=== PATIENT | male | born 1975 | race Caucasian/White ===

== ENCOUNTER 2020-06-23 16:51 | Emergency (ER) | payer OTHER ==
[~2020-06-23] VITALS: Ht 162.5 cm; Wt 73.5 kg
[2020-06-23] MEDS ORDERED: LORazepam INJ 2 MG/ML (ATIVAN) VIAL ONE (17:13)
[2020-06-23] MEDS ORDERED: ASPIRIN 81 MG CHEW (CHILDREN'S ASA) PO ONE (17:15)
[2020-06-23] MEDS ORDERED: NITROGLYCERIN 0.4 MG SL TABS BTL 25'S SL PRN (17:15)
[2020-06-23 17:17] LABS: HEMATOCRIT 47 % (40-54); HEMOGLOBIN 16.2 G/DL (13.3-17.7); LYMPHOCYTES % (AUTO) 21 % (12-44); MEAN CORPUSCULAR HEMOGLOBIN 31 PG (25-34); MEAN CORPUSCULAR HGB CONC 34 G/DL (32-36); MEAN CORPUSCULAR VOLUME 89 FL (80-99); MEAN PLATELET VOLUME 9.8 FL (7.4-10.4); MONOCYTES % (AUTO) 6 % (0-12); NEUTROPHILS % (AUTO) 69 % (42-75); PLATELET COUNT 322 10^3/uL (130-400); WHITE BLOOD COUNT 9.6 10^3/uL (4.3-11.0)
[2020-06-23 17:18] LABS: BASOPHILS # (AUTO) 0.1 10^3/uL (0.0-0.1); BASOPHILS % (AUTO) 1 % (0-10); EOSINOPHILS # (AUTO) 0.3 10^3/uL (0.0-0.3); EOSINOPHILS % (AUTO) 3 % (0-10); LYMPHOCYTES # (AUTO) 2.1 X 10^3 (1.0-4.0); MONOCYTES # (AUTO) 0.6 X 10^3 (0.0-1.0); NEUTROPHILS # (AUTO) 6.6 X 10^3 (1.8-7.8)
[2020-06-23] MEDS ORDERED: LORazepam INJ 2 MG/ML (ATIVAN) VIAL IVP ONE (17:30)
[2020-06-23 17:33] LABS: ALKALINE PHOSPHATASE 51 U/L (40-136); BILIRUBIN,TOTAL 0.3 MG/DL (0.1-1.0); BUN/CREATININE RATIO 19; CALCIUM 9.6 MG/DL (8.5-10.1); CARBON DIOXIDE 28 MMOL/L (21-32); CHLORIDE 102 MMOL/L (98-107); CREATININE SERUM 0.97 MG/DL (0.60-1.30); GFR ESTIMATED > 60; GLUCOSE 104 MG/DL (70-105); POTASSIUM 3.8 MMOL/L (3.6-5.0); SODIUM 139 MMOL/L (135-145)
[2020-06-23 17:34] LABS: ALANINE AMINOTRANSFERASE 18 U/L (0-55); ALBUMIN 4.7 GM/DL (3.2-4.5); LIPASE 31 U/L (8-78); TOTAL PROTEIN 7.2 GM/DL (6.4-8.2)
--- NOTE | 2020-06-23 17:36 | Diagnostic Imaging Report ---
EXAMINATION: Chest 1 view HISTORY: Chest pain and hypertension. COMPARISON: None available. FINDINGS: Heart size and pulmonary vasculature are normal. The lungs are clear without consolidation, pleural effusion, or pneumothorax. The osseous structures are intact. IMPRESSION: 1. No acute radiographic abnormality in the chest. Dictated by: Dictated on workstation # [id number]
[2020-06-23] MEDS ORDERED: ACETAMINOPHEN 500 MG TAB (TYLENOL) PO ONE (17:45)
--- NOTE | 2020-06-23 18:30 | ED Chest Pain ---
General Chief Complaint: Chest Pain Stated Complaint: CHEST PAINS Nursing Triage Note: Pt presents ambulatory to ED from [facility] Urgent Care referral for onset chest pain. Associated sx: HTN. Denies any medical health hx. Denies dyspnea, N/V, diaphoresis, or other sx. Reports elevated BP only at Dr visits. Pt has had L sided CP for several weeks off and on. Nursing Sepsis Screen: No Definite Risk Source: patient Exam Limitations: no limitations History of Present Illness Date Seen by Provider: June 23, 2020 Time Seen by Provider: 19:00 Initial Comments Patient is a 44-year-old male who presents with intermittent daily chest pressure for the past 2 weeks. Patient describes pain is dull nonradiating it is rated mild to moderate. Pain is not worse with palpation, movement, deep breathing or exertion. It is not relieved with rest. Patient states current episode started hours ago while at work. No medications or therapies taken prior to ED arrival. Patient states he has a history of whitecoat hypertension. He does not take medications at home. Denies abdominal pain, nausea vomiting, shortness of breath, leg pain or swelling. No back or flank pain. No other acute symptoms or complaints. Patient has not been evaluated for his symptoms prior to today's ED visit. Timing/Duration: other Severity/Quality: other Location: other Activities at Onset: other Prior CP/Workup: other Modifying Factors: improves with other Allergies and Home Medications Allergies Coded Allergies: Penicillins (Unverified Adverse Reaction, Mild, Hives, 06/23/20) Home Medications No Active Prescriptions or Reported Meds Patient Home Medication List Home Medication List Reviewed: Yes Review of Systems Review of Systems Constitutional: see HPI EENTM: See HPI Respiratory: See HPI Cardiovascular: See HPI Gastrointestinal: See HPI Genitourinary: See HPI Musculoskeletal: see HPI Skin: see HPI Psychiatric/Neurological: See HPI Endocrine: See HPI Hematologic/Lymphatic: See HPI All Other Systems Reviewed Negative Unless Noted: Yes Past Gubtfcl-Qfbfst-Jvwuak Hx Past Med/Social Hx: Reviewed Nursing Past Med/Soc Hx Patient Social History Alcohol Use: Rarely Uses Smoking Status: Former Smoker Former Smoker, Quit: Feb 14, 2005 Recent Infectious Disease Expo: No Recent Hopitalizations: No Immunizations Up To Date Tetanus Booster (TDap): Unknown Seasonal Allergies Seasonal Allergies: No Past Medical History Surgeries: Yes (Exp Laparotomy (stabbing), L knee meniscus) Adenoidectomy, Appendectomy, Orthopedic, Tonsillectomy Respiratory: No Cardiac: No Neurological: No Genitourinary: No Gastrointestinal: No Musculoskeletal: No Endocrine: No HEENT: No Cancer: No Psychosocial: No Integumentary: No Blood Disorders: No Physical Exam Vital Signs Vital Signs - First Documented Capillary Refill : Less Than 3 Seconds Height, Weight, BMI Height: '" Weight: lbs. oz. kg; 27.00 BMI Method: General Appearance: No Apparent Distress, Anxious HEENT: PERRL/EOMI, Pharynx Normal Neck: Full Range of Motion, Non Tender, Supple Respiratory: Lungs Clear Cardiovascular: Regular Rate, Rhythm Gastrointestinal: Non Tender, Soft Neurologic/Psychiatric: Alert, Oriented x3, No Motor/Sensory Deficits, Normal Mood/Affect Focused Exam Sepsis Stage: Ruled Out Progress/Results/Core Measures Results/Orders Lab Results Laboratory Tests Test 06/23/20 16:55 06/23/20 18:56 Range/Units White Blood Count 9.6 4.3-11.0 10^3/uL Red Blood Count 5.30 4.35-5.85 10^6/uL Hemoglobin 16.2 13.3-17.7 G/DL Hematocrit 47 40-54 % Mean Corpuscular Volume 89 80-99 FL Mean Corpuscular Hemoglobin 31 25-34 PG Mean Corpuscular Hemoglobin Concent 34 32-36 G/DL Red Cell Distribution Width 12.2 10.0-14.5 % Platelet Count 322 130-400 10^3/uL Mean Platelet Volume 9.8 7.4-10.4 FL Immature Granulocyte % (Auto) 0 % Neutrophils (%) (Auto) 69 42-75 % Lymphocytes (%) (Auto) 21 12-44 % Monocytes (%) (Auto) 6 0-12 % Eosinophils (%) (Auto) 3 0-10 % Basophils (%) (Auto) 1 0-10 % Neutrophils # (Auto) 6.6 1.8-7.8 X 10^3 Lymphocytes # (Auto) 2.1 1.0-4.0 X 10^3 Monocytes # (Auto) 0.6 0.0-1.0 X 10^3 Eosinophils # (Auto) 0.3 0.0-0.3 10^3/uL Basophils # (Auto) 0.1 0.0-0.1 10^3/uL Immature Granulocyte # (Auto) 0.0 0.0-0.1 10^3/uL D-Dimer 0.24 0.00-0.49 UG/ML Sodium Level 139 135-145 MMOL/L Potassium Level 3.8 3.6-5.0 MMOL/L Chloride Level 102 98-107 MMOL/L Carbon Dioxide Level 28 21-32 MMOL/L Anion Gap 9 5-14 MMOL/L Blood Urea Nitrogen 18 7-18 MG/DL Creatinine 0.97 0.60-1.30 MG/DL Estimat Glomerular Filtration Rate > 60 BUN/Creatinine Ratio 19 Glucose Level 104 70-105 MG/DL Calcium Level 9.6 8.5-10.1 MG/DL Corrected Calcium 8.5-10.1 MG/DL Total Bilirubin 0.3 0.1-1.0 MG/DL Aspartate Amino Transf (AST/SGOT) 20 5-34 U/L Alanine Aminotransferase (ALT/SGPT) 18 0-55 U/L Alkaline Phosphatase 51 40-136 U/L Troponin I < 0.30 <0.30 NG/ML Total Protein 7.2 6.4-8.2 GM/DL Albumin 4.7 H 3.2-4.5 GM/DL Lipase 31 8-78 U/L My Orders Orders - FARZAD HEATON DO Cbc With Automated Diff (06/23/20 17:00) Comprehensive Metabolic Panel (06/23/20 17:00) Troponin I Fs (06/23/20 17:00) Chest 1 View Ap/Pa Only (06/23/20 17:00) Fibrin Degradation Products (06/23/20 17:00) Lipase (06/23/20 17:00) Ekg-Prn For Chest Pain Or Rhyt (06/23/20 17:00) Aspirin Chewable Tablet (Baby Aspirin Ch (06/23/20 17:15) Nitroglycerin 0.4 Mg Btl 25's (Nitrostat (06/23/20 17:15) Lorazepam Injection (Ativan Injection) (06/23/20 17:30) Lorazepam Injection (Ativan Injection) (06/23/20 17:13) Acetaminophen Tablet (Tylenol Tablet) (06/23/20 17:45) Troponin I Fs (06/23/20 18:55) Troponin I Fs (06/23/20 18:39) Medications Given in ED Current Medications Medications Dose Ordered Sig/Rupa Route Start Time Stop Time Status Last Admin Dose Admin Acetaminophen 1,000 mg ONCE ONCE PO 06/23/20 17:45 06/23/20 17:46 DC 06/23/20 17:47 1,000 MG Aspirin 324 mg ONCE ONCE PO 06/23/20 17:15 06/23/20 17:16 DC 06/23/20 17:11 324 MG Nitroglycerin 1 TAB Q 5 MIN X 3 NEEDED PRN SL 06/23/20 17:15 06/23/20 17:11 0.4 MG Vital Signs/I&O 06/23/20 06/23/20 06/23/20 16:52 16:52 17:47 Temp 37.1 37.1 Pulse 82 Resp 20 B/P (MAP) 189/94 (125) O2 Delivery Room Air Room Air Blood Pressure Mean: 125 Departure Communication (Admissions) EKG 06/23/20 1651, normal sinus rhythm, rate 84, AL 137, QRS 92, QTc 447. No acute ST segment Twave changes. Patient with atypical chest pain partial relief with nitroglycerin. Patient resulted in headache Tylenol given for relief of headache. Further nitroglycerin declined. EKG and troponin are negative. Patient's chest pain improved with resolution of anxiety and normalization of blood pressure. Will update report. Recommendations are for hospital admission for further evaluation. Patient declines further evaluation and prefers to establish with a local primary care provider. I did explain to the patient that he is at risk of complications of undiagnosed CAD including injury and . Patient verbalizes understanding. He prefers to establish with a local primary care provider. Patient's heart score is 0-1. Feel this is reasonable and encouraged the patient to take daily aspirin and establish with a PCP tomorrow. Return precautions reviewed. Patient verbalizes understanding agreement discharge instructions prior to departure. Impression Primary Impression: Chest pain Disposition: 01 HOME, SELF-CARE Condition: Stable Departure-Patient Inst. Referrals: NO,LOCAL PHYSICIAN (PCP) Primary Care Physician Patient Instructions: Chest Pain, Adult ED Add. Discharge Instructions: You were evaluated in the ED for chest pain. An EKG, labs and imaging were performed and are a non-diagnostic. The exact cause of your symptoms has not been determined but may be heart related. Please take daily aspirin and establish with a local PC tomorrow. In the meantime, if you develop new or co ncerning symptoms return to the ED. All discharge instructions reviewed with patient and/or family. Voiced understanding. Scripts No Active Prescriptions or Reported Meds FARZAD HEATON DO June 23, 2020 18:30
[2020-06-23 19:25] VITALS: BP 164/95
== END 2020-06-23 19:25 | disposition home or self-care (01) ==
LOC: EDUNIT# 16:51 → ER FS 16:53
DX: R07.9 Chest pain, unspecified (principal); Z88.0 Allergy status to penicillin; Z87.891 Personal history of nicotine dependence
CPT/HCPCS: 36415; 71045; 80053; 83690; 84484; 85025; 85379; 93005

== ENCOUNTER → 2020-12-24 | Outpatient (CLI) | payer OTHER ==
--- NOTE | 2020-12-24 11:36 | Diagnostic Imaging Report ---
INDICATION: Neck pain. TIME OF EXAM: 11:05 AM AP, lateral and odontoid views of the cervical spine were obtained. FINDINGS: There is some straightening of normal cervical lordotic curvature. Vertebral body heights and disc spaces are well-maintained. No fracture or subluxation is identified. Prevertebral tissues are normal. Odontoid is intact. IMPRESSION: No acute abnormality is detected. Dictated by: Dictated on workstation # [id number]
== END ==
LOC: RAD FS 10:48
PROVIDERS: ATTEND Nurse Practitioner Family
DX: M50.122 Cervical disc disorder at C5-C6 level with radiculopathy (principal)
CPT/HCPCS: 72040

== ENCOUNTER → 2021-11-06 | Outpatient (CLI) | payer OTHER | LOC: CARD 14:30 | PROVIDERS: ATTEND Internal Medicine Cardiovascular Disease | DX: R06.09 Other forms of dyspnea (principal) | CPT/HCPCS: 93306 ==

== ENCOUNTER 2021-11-21 22:52 | Emergency (ER) | payer OTHER ==
[2021-11-21] MEDS ORDERED: NS IV 1000 ML 1,000 ML IV STA (23:07)
[2021-11-21] MEDS ORDERED: ONDANSETRON 4 MG/2 ML (SDV) Z0FRAN IVP STA (23:07)
[2021-11-21] MEDS ORDERED: KETOROLAC 30 MG/ML VIAL IVP STA (23:07)
[2021-11-21 23:12] LABS: BASOPHILS # (AUTO) 0.1 10^3/uL (0.0-0.1); BASOPHILS % (AUTO) 0 % (0-10); EOSINOPHILS # (AUTO) 0.1 10^3/uL (0.0-0.3); EOSINOPHILS % (AUTO) 1 % (0-10); HEMATOCRIT 48 % (40-54); HEMOGLOBIN 17.3 g/dL (13.3-17.7); LYMPHOCYTES % (AUTO) 7 % (12-44); MEAN CORPUSCULAR HEMOGLOBIN 32 pg (25-34); MEAN CORPUSCULAR HGB CONC 36 g/dL (32-36); MEAN CORPUSCULAR VOLUME 88 fL (80-99); MEAN PLATELET VOLUME 9.5 fL (9.0-12.2); MONOCYTES # (AUTO) 0.6 10^3/uL (0.0-1.0); MONOCYTES % (AUTO) 4 % (0-12); NEUTROPHILS # (AUTO) 12.3 10^3/uL (1.8-7.8); NEUTROPHILS % (AUTO) 87 % (42-75); PLATELET COUNT 344 10^3/uL (130-400); WHITE BLOOD COUNT 14.1 10^3/uL (4.3-11.0)
--- NOTE | 2021-11-21 23:14 | ED Back Pain ---
General Chief Complaint: Back Problems Stated Complaint: BACK PAIN, TROUBLE URINATING Nursing Triage Note: Pt complaining of right flank pain that started this morning as well as nausea/vomiting Source of Information: Patient History of Present Illness Date Seen by Provider: Nov 21, 2021 Time Seen by Provider: 23:00 Initial Comments 46-year-old male presenting with complaints of right flank pain that started in the morning and associated with nausea and vomiting coming in waves. He denies having pain or symptoms like this previously. He denies any acute injury or trauma. He was having difficulty trying to keep down even water at home this evening so he finally came to the emergency department. He denies any change in his bowels. He denies having any burning pain with urination and states that he has had decreased urination. He denies fever or chills. Timing/Duration: 12-24 Hours Severity: Severe Pain/Injury Location: Abdomen (Epigastric and right flank) Method of Injury: Unknown Modifying Factors: Worse With Movement, Worse With Other (Eating) Associated Symptoms: No muscle spasms, No fever, No weakness, No numbness in legs/feet, No tingling in legs/feet, No sensory/motor loss, No lower back pain, No loss of bladder control, No loss of bowel control Allergies and Home Medications Allergies Coded Allergies: Penicillins (Unverified Adverse Reaction, Mild, Hives, 06/23/20) Patient Home Medication List Home Medication List Reviewed: Yes No Active Prescriptions or Reported Meds Review of Systems Constitutional: No chills, No fever EENTM: no symptoms reported Respiratory: no symptoms reported Cardiovascular: no symptoms reported Gastrointestinal: see HPI Genitourinary: pain (Right flank pain) Musculoskeletal: no symptoms reported Skin: No rash Psychiatric/Neurological: No Symptoms Reported Past Odvhcib-Fsbwmu-Gabazt Hx Patient Social History Tobacco Use?: No Use of E-Cig and/or Vaping dev: No Substance use?: No Alcohol Use?: No Pt feels they are or have been: No Immunizations Up To Date Tetanus Booster (TDap): Unknown Seasonal Allergies Seasonal Allergies: No Past Medical History Surgery/Hospitalization HX: Hypertension, appendectomy, adenoidectomy, orthopedic surgery, tonsillectomy Surgeries: Yes (Exp Laparotomy (stabbing), L knee meniscus) Adenoidectomy, Appendectomy, Orthopedic, Tonsillectomy Respiratory: No Cardiac: No Neurological: No Genitourinary: No Gastrointestinal: No Musculoskeletal: No Endocrine: No HEENT: No Cancer: No Psychosocial: No Integumentary: No Blood Disorders: No Physical Exam Vital Signs Vital Signs - First Documented 11/21/21 22:57 Temp 36.7 Pulse 101 Resp 20 B/P (MAP) 171/107 (128) Pulse Ox 97 O2 Delivery Room Air Capillary Refill : Less Than 3 Seconds Height, Weight, BMI Height: '" Weight: lbs. oz. kg; 27.00 BMI Method: General Appearance: Mild Distress HEENT: PERRL/EOMI, Pharynx Normal Neck: Full Range of Motion, Normal Inspection, Non Tender, Supple Cardiovascular: Regular Rate, Rhythm, Normal Peripheral Pulses Respiratory: Chest Non Tender, Lungs Clear, Normal Breath Sounds, No Accessory Muscle Use, No Respiratory Distress Gastrointestinal: No Pulsatile Mass, Soft, Abnormal Bowel Sounds (Hypoactive bowel sounds); No Distended; Guarding; No Hepatomegaly, No Rebound; Tenderness (Epigastric and right flank) Back: No CVA Tenderness Extremity: Normal Capillary Refill, Normal Inspection, No Pedal Edema Neurologic/Psychiatric: Alert, Oriented x3, telephone service representative II-XII Norm as Tested Skin: Normal Color, Warm/Dry Progress/Results/Core Measures Results/Orders Lab Results Laboratory Tests Test 11/21/21 23:05 Range/Units White Blood Count 14.1 H 4.3-11.0 10^3/uL Red Blood Count 5.42 4.30-5.52 10^6/uL Hemoglobin 17.3 13.3-17.7 g/dL Hematocrit 48 40-54 % Mean Corpuscular Volume 88 80-99 fL Mean Corpuscular Hemoglobin 32 25-34 pg Mean Corpuscular Hemoglobin Concent 36 32-36 g/dL Red Cell Distribution Width 12.7 10.0-14.5 % Platelet Count 344 130-400 10^3/uL Mean Platelet Volume 9.5 9.0-12.2 fL Immature Granulocyte % (Auto) 0 % Neutrophils (%) (Auto) 87 H 42-75 % Lymphocytes (%) (Auto) 7 L 12-44 % Monocytes (%) (Auto) 4 0-12 % Eosinophils (%) (Auto) 1 0-10 % Basophils (%) (Auto) 0 0-10 % Neutrophils # (Auto) 12.3 H 1.8-7.8 10^3/uL Lymphocytes # (Auto) 1.0 1.0-4.0 10^3/uL Monocytes # (Auto) 0.6 0.0-1.0 10^3/uL Eosinophils # (Auto) 0.1 0.0-0.3 10^3/uL Basophils # (Auto) 0.1 0.0-0.1 10^3/uL Immature Granulocyte # (Auto) 0.1 0.0-0.1 10^3/uL Neutrophils % (Manual) 94 % Lymphocytes % (Manual) 4 % Monocytes % (Manual) 2 % Sodium Level 134 L 135-145 MMOL/L Potassium Level 4.5 3.6-5.0 MMOL/L Chloride Level 95 L 98-107 MMOL/L Carbon Dioxide Level 22 21-32 MMOL/L Anion Gap 17 H 5-14 MMOL/L Blood Urea Nitrogen 11 7-18 MG/DL Creatinine 1.08 0.60-1.30 MG/DL Estimat Glomerular Filtration Rate 86 BUN/Creatinine Ratio 10 Glucose Level 122 H 70-105 MG/DL Calcium Level 9.8 8.5-10.1 MG/DL Corrected Calcium 8.5-10.1 MG/DL Total Bilirubin 0.4 0.1-1.0 MG/DL Aspartate Amino Transf (AST/SGOT) 40 H 5-34 U/L Alanine Aminotransferase (ALT/SGPT) 29 0-55 U/L Alkaline Phosphatase 53 40-136 U/L Total Protein 7.9 6.4-8.2 GM/DL Albumin 4.6 H 3.2-4.5 GM/DL Lipase 22 8-78 U/L My Orders Orders - SÁNCHEZ URIBE MD Comprehensive Metabolic Panel (11/21/21 23:07) Lipase (11/21/21 23:07) Ua Culture If Indicated (11/21/21 23:07) Ed Iv/Invasive Line Start (11/21/21 23:) Cbc With Automated Diff (11/21/21 23:) Ct Abdomen/Pelvis Wo (11/21/21 23:07) Ns Iv 1000 Ml (Sodium Chloride 0.9%) (11/21/21 23:07) Ondansetron Injection (Zofran Injectio (11/21/21 23:07) Ketorolac Injection (Toradol Injection) (11/21/21 23:07) Manual Differential (11/21/21 23:05) Drug Screen Stat (Urine) (11/21/21 23:13) Pantoprazole Injection (Protonix Injecti (11/21/21 23:24) Fentanyl Inj (Sublimaze Injection) (11/21/21 23:24) Metronidazole 500mg/100ml Ivpb (Flagyl 5 (11/22/21 00:37) Ciprofloxacin Tablet (Cipro Tablet) (11/22/21 00:37) Ns Iv 1000 Ml (Sodium Chloride 0.9%) (11/22/21 00:37) Vital Signs/I&O 11/21/21 22:57 Temp 36.7 Pulse 101 Resp 20 B/P (MAP) 171/107 (128) Pulse Ox 97 O2 Delivery Room Air 11/22/21 00:00 Intake Total 1000 ml Balance 1000 ml Blood Pressure Mean: 128 Progress Progress Note #1: Progress Note Check basic labs and urine. Order CT scan of the abdomen and pelvis without contrast since he has sudden onset of pain and coming in waves will evaluate for possible kidney stone. Other diagnoses in his differential would be colitis, pancreatitis, cholecystitis, diverticulitis, gastritis. Administer 1 L normal saline IV fluid for hydration. Zofran 4 mg IV for nausea and vomiting, Toradol 30 mg IV for pain Progress Note #2: Progress Note When patient returned from CT he was still reporting a burning sensation in his epigastric area so Protonix was added and a dose of fentanyl. However when the nurse went to give the medicines he stated that he was feeling a little bit better so he only took the Protonix for now. Awaiting CT scan results but the labs showed a CBC and an elevated white blood cell count of 14.1 thousand with a left shift. He had no acute significant abnormality on his chemistry panel to account for his pain. He still has not provided a urine specimen. Progress Note #3: Time: 00:[address] scan shows 1 cm subpleural nodule in left lower lobe of lung and radiologist recommends follow up on that. Thickened proximal small bowel for infectious vs inflammatory enteritis. No appendicitis, cholecystitis. Will check with patient and see if he is able to tolerate po could do oral antibiotics at home with nausea medicine, pain medicine for bowels and clear liquid diet for 24 to 48 hours. If he can not tolerate po or pain is not controlled here in ED will check with decay control operator provider about admit for IVF, pain medicine and antibiotics. Progress Note #4: Time: 01:34 Progress Note Pain still tolerable and no more emesis while in ED. Tolerating po intake without aggravating his symptoms. Will discharge to home with oral antibiotics and nausea medicine as well as bentyl for pain. Clear liquid diet for 24 to 48 hours and then advance as tolerated. Return or seek medical care if not improving or having worsening symptoms Diagnostic Imaging Diagonstic Imaging: CT Plain Films/CT/US/NM/MRI: abdomen, pelvis Comments CT scan of the abdomen and pelvis without IV contrast shows a 1 cm subpleural nodule in the left lower lobe and radiology advises follow-up. Markedly thickened proximal small bowel probably infectious or inflammatory enteritis. CT was read by Dr. Brenda Glass MD with [facility] Reviewed: Reviewed by Me Departure Impression Primary Impression: Enteritis Additional Impressions: Epigastric abdominal pain Nausea and vomiting in adult Acute right flank pain Disposition: HOME, SELF-CARE Condition: Improved Departure-Patient Inst. Decision time for Depature: 01:40 Referrals: PONCHO ARANGO DO (PCP/Family) Primary Care Physician Patient Instructions: Abdominal Pain, Adult ED, Gastritis ED, Nausea and Vomiting, Adult ED Add. Discharge Instructions: Follow a liquid diet for next 24 to 48 hours then advance to more regular food as you tolerate it. Take nausea medicine as needed to help keep your stomach settled. Use the Dicyclomine(Bentyl) for abdominal pain/spasms every 6 hours as needed. Take the full course of antibiotics to treat for infection/inflammation of the small intestines. since the intestines are showing inflammation/infection it is possible you will develop diarrhea in the next few days. If having worsening pain, uncontrolled vomiting despite the medicine, fever over 101 F then return or seek medical care for further evaluation All discharge instructions reviewed with patient and/or family. Voiced understanding. Scripts Ciprofloxacin HCl (Ciprofloxacin HCl) 500 Mg Tablet 500 MG PO BID for enteritis for 7 Days, #14 TAB 0 Refills Prov: SÁNCHEZ URIBE MD 11/22/21 Metronidazole (Metronidazole) 500 Mg Tablet 500 MG PO BID for Enteritis for 7 Days, #14 TAB 0 Refills Prov: SÁNCHEZ URIBE MD 11/22/21 Ondansetron (Ondansetron Odt) 4 Mg Tab.rapdis 4 MG PO Q6H PRN for NAUSEA/VOMITING for 3 Days, #12 TAB 0 Refills Prov: SÁNCHEZ URIBE MD 11/22/21 Dicyclomine HCl (Dicyclomine HCl) 10 Mg Capsule 10 MG PO QID PRN for abdominal pain/spasms for 7 Days, #28 CAP 0 Refills Prov: SÁNCHEZ URIBE MD 11/22/21 SÁNCHEZ URIBE MD Nov 21, 2021 23:14
[2021-11-21] MEDS ORDERED: PANTOPRAZOLE 40 MG (PROTONIX) VIAL IV STA (23:24)
[2021-11-21 23:26] LABS: LYMPHOCYTES % (MANUAL) 4 %; MONOCYTES % (MANUAL) 2 %; NEUTROPHILS % (MANUAL) 94 %
[2021-11-21 23:29] LABS: ALANINE AMINOTRANSFERASE 29 U/L (0-55); ALBUMIN 4.6 GM/DL (3.2-4.5); ALKALINE PHOSPHATASE 53 U/L (40-136); BILIRUBIN,TOTAL 0.4 MG/DL (0.1-1.0); BUN/CREATININE RATIO 10; CALCIUM 9.8 MG/DL (8.5-10.1); CARBON DIOXIDE 22 MMOL/L (21-32); CHLORIDE 95 MMOL/L (98-107); CREATININE SERUM 1.08 MG/DL (0.60-1.30); GFR ESTIMATED 86; GLUCOSE 122 MG/DL (70-105); LIPASE 22 U/L (8-78); POTASSIUM 4.5 MMOL/L (3.6-5.0); SODIUM 134 MMOL/L (135-145); TOTAL PROTEIN 7.9 GM/DL (6.4-8.2)
[2021-11-21] MEDS: fentaNYL INJ 100 MCG/2 ML AMP IVP STA (23:31)
[2021-11-22] MEDS: fentaNYL INJ 100 MCG/2 ML AMP IVP STA (00:07)
[2021-11-22] MEDS ORDERED: NS IV 1000 ML 1,000 ML IV STA (00:37)
[2021-11-22] MEDS ORDERED: CIPROFLOXACIN 500 MG (CIPRO) TABLET PO STA (00:37)
[2021-11-22] MEDS ORDERED: metroNIDAZOLE 500MG/100ML IVPB 100 ML IV STA (00:37)
[2021-11-22] MEDS ORDERED: ONDA4TAB11 PO (01:45)
[2021-11-22] MEDS ORDERED: RX-DICYCLOMINE 10 MG (BENTYL) CAP PPK#4 PO PRN (01:45)
[2021-11-22] MEDS ORDERED: DICY10CA12 PO (01:45)
[2021-11-22] MEDS ORDERED: CIPR500T5 PO (01:45)
[2021-11-22] MEDS ORDERED: RX-ONDANSETRON 4 MG ODT (ZOFRAN) PPK #4 PO PRN (01:45)
[2021-11-22] MEDS ORDERED: METR-145 PO (01:45)
[2021-11-22 01:54] VITALS: BP 133/79
--- NOTE | 2021-11-22 06:49 | Diagnostic Imaging Report ---
EXAMINATION: CT abdomen and pelvis without contrast. TECHNIQUE: Multiple contiguous axial images were obtained through the abdomen and pelvis without the use of intravenous contrast. All CT scans use one or more of the following dose optimizing techniques: automated exposure control, MA and/or KvP adjustment based on patient size and exam type or iterative reconstruction. HISTORY: Right flank pain COMPARISON: None available. FINDINGS: Limited views of the lower thorax. There is a 1 cm left lower lobe nodule. The liver is normal without focal lesion. There is no biliary ductal dilation. Gallbladder is normal. Pancreas is normal. Spleen is normal. Adrenal glands are normal. The kidneys are normal. There is no hydronephrosis. Urinary bladder is normal. There is marked wall thickening of the proximal jejunum with mesenteric stranding. Remainder of the bowel is normal. Small amount of free fluid is present. No free air. No abdominal or pelvic lymphadenopathy. Aorta is normal in caliber without aneurysm. There are no suspicious osseus lesions. IMPRESSION: 1. Left lower lobe nodule measuring 1 cm. Three-month follow-up recommended. 2. Marked wall thickening of the proximal jejunum with mesenteric stranding and a small amount of free fluid. Findings consistent with enteritis which may be infectious or related to inflammatory bowel disease. Dictated by: Dictated on workstation # [id number]
== END 2021-11-22 02:03 | disposition home or self-care (01) ==
LOC: EDUNIT# 22:52 → ER FS 22:55
DX: K52.9 Noninfective gastroenteritis and colitis, unspecified (principal); Z88.0 Allergy status to penicillin; Z28.310 Unvaccinated for COVID-19
CPT/HCPCS: 74176; 80053; 83690; 85007

== ENCOUNTER → 2021-11-24 | Outpatient (CLI) | payer OTHER ==
[~2021-11-24] MED LIST: CIPR500T5 PO; DICY10CA12 PO; METR-145 PO; ONDA4TAB11 PO
[2021-11-24 13:25] VITALS: BP 130/90
== END ==
LOC: CARD 13:02
PROVIDERS: ATTEND Internal Medicine Cardiovascular Disease
DX: R07.89 Other chest pain (principal)